=== PATIENT | female | born 1995 | race Caucasian/White ===

== ENCOUNTER 2016-07-29 23:35 | Emergency (ER) | payer BC ==
[~2016-07-29] VITALS: Ht 162.6 cm; Wt 85.3 kg
[~2016-07-29 23:35] MED LIST: PHEN100T82 PO; SULF1TAB24 PO
[2016-07-29 23:40] VITALS: BP 130/78
[2016-07-30] MEDS ORDERED: IBUP600T16 PO (00:13)
--- NOTE | 2016-07-30 00:16 | PHYS DOC ---
Past History Past Medical History: No Pertinent History Past Surgical History: No Surgical History Smoking: Cigarettes Alcohol Use: None Drug Use: None Adult General Chief Complaint Chief Complaint: PELVIC PAIN [facility] HPI Patient is a 20 year old female who presents with complaint of pelvic pain. Patient states that she had an episode pain prior to arrival but currently is asymptomatic. On further questioning, patient states that she has been having intermittent episodes over the past month. Patient states that the pain has worsened with sexual intercourse. Patient denies any vaginal bleeding or abnormal vaginal discharge. Patient has not taken any medications to help with her symptoms. Patient does not currently follow with [facility] and has not had a well woman visit in the last 2 years. Patient states that the pain has been in her lower abdomen and pelvis. Patient denies radiation of pain. Review of Systems Review of Systems Constitutional: Denies fever or chills [] Eyes: Denies change in visual acuity, redness, or eye pain [] HENT: Denies nasal congestion or sore throat [] Respiratory: Denies cough or shortness of breath [] Cardiovascular: No additional information not addressed in HPI [] GI: Denies abdominal pain, nausea, vomiting, bloody stools or diarrhea [] : Pelvic pain, denies vaginal bleeding, abnormal vaginal discharge, dysuria, or hematuria [] Musculoskeletal: Denies back pain or joint pain [] Integument: Denies rash or skin lesions [] Neurologic: Denies headache, focal weakness or sensory changes [] Allergies Allergies Allergies Coded Allergies Type Severity Reaction Last Updated Verified No Known Drug Allergies 12/30/15 No Physical Exam Physical Exam Constitutional: Well developed, well nourished, no acute distress, non-toxic appearance. [] HENT: Normocephalic, atraumatic, bilateral external ears normal, oropharynx moist, no oral exudates, nose normal. [] Eyes: PERRLA, EOMI, conjunctiva normal, no discharge. [] Neck: Normal range of motion, no tenderness, supple, no stridor. [] Cardiovascular:Heart rate regular rhythm, no murmur [] Lungs & Thorax: Bilateral breath sounds clear to auscultation [] Abdomen: Bowel sounds normal, soft, no tenderness, no masses, no pulsatile masses. Pelvic: Offered but declined by patient [] Skin: Warm, dry, no erythema, no rash. [] Back: No tenderness, no CVA tenderness. [] Extremities: No tenderness, no cyanosis, no clubbing, ROM intact, no edema. [] Neurologic: Alert and oriented X 3, normal motor function, normal sensory function, no focal deficits noted. [] Current Patient Data Vital Signs Vital Signs Date Time Temp Pulse Resp B/P (MAP) Pulse Ox O2 Delivery O2 Flow Rate FiO2 07/29/16 23:40 97.6 92 18 98 Room Air Lab Results Laboratory Tests Test 07/30/16 00:02 Bedside Urine HCG, Qualitative hcg negative EKG EKG Not performed [] Radiology/Procedures Radiology/Procedures Not performed [] Course & Med Decision Making Course & Med Decision Making Pertinent Labs and Imaging studies reviewed. (See chart for details) The patient appears well on exam. Source of patient's pain does not appear to be acute or life-threatening. I did offer the patient a pelvic exam in the emergency department which she declined but did agree to have this done as an outpatient with an [facility]. I refer the patient to Dr. Paloom of [facility] for further evaluation of her dyspareunia and pelvic pain. Advised return emergency department for any worsening symptoms. Patient voiced understanding and in agreement with treatment plan. Dragon Disclaimer Dragon Disclaimer This chart was dictated in whole or in part using Voice Recognition software in a busy, high-work load, and often noisy Emergency Department environment. It may contain unintended and wholly unrecognized errors or omissions. Departure Departure: Impression: Primary Impression: Pelvic pain Additional Impression: Dyspareunia Disposition: 01 HOME, SELF-CARE Condition: GOOD Referrals: PCP,NO (PCP) Patient Instructions: Pelvic Pain, Female Additional Instructions: Follow-up with Dr. Palomo of [facility] at to schedule an appointment in one week for evaluation. You will need a pelvic exam which was offered at today's visit to help diagnose the cause of your pain. His office is located at [address] [place] [address]. Return to the emergency department for any worsening symptoms. Scripts Ibuprofen (IBUPROFEN) 600 Mg Tablet 600 MG PO Q6HRS Y for PAIN, #30 TAB Prov: CALISTA HUFFMAN MD 07/30/16 Problem Qualifiers CALISTA HUFFMAN MD Jul 30, 2016 00:16
[2016-07-30 00:38] LABS: BILIRUBIN,URINE NEG (NEG); CLARITY,URINE CLEAR; COLOR,URINE YELLOW; GLUCOSE,URINE NEG (NEG); NITRITE,URINE NEG (NEG); UROBILINOGEN,URINE 0.2 mg/dL (0.2 mg/dL)
== END 2016-07-30 00:30 | disposition home or self-care (01) ==
LOC: ER 23:35
DX: R10.2 Pelvic and perineal pain (principal); N94.10 Unspecified dyspareunia; F17.210 Nicotine dependence, cigarettes, uncomplicated
CPT/HCPCS: 81003; 81025; 99283

== ENCOUNTER 2017-03-04 13:06 | Emergency (ER) | payer BC ==
[~2017-03-04 13:06] MED LIST changes: +IBUP600T16 PO
[2017-03-04] MEDS ORDERED: IV NORMAL SALINE 1,000ML 1,000 ML IV SCH (14:28)
[2017-03-04] MEDS ORDERED: FAMOTIDINE 20 MG/2 ML VIAL IVP ONE (15:00)
[2017-03-04] MEDS ORDERED: ONDANSETRON PF 4 MG/2 ML VIAL. IV ONE (15:00)
[2017-03-04 15:01] LABS: HEMOGLOBIN ISTAT 11.2 gm/dL; POTASSIUM ISTAT 3.7 mmol/L (3.5-5.0)
[2017-03-04] MEDS ORDERED: CEFD300C PO (15:32)
[2017-03-04] MEDS ORDERED: ONDA4TAB10 PO (15:32)
[2017-03-04 15:34] VITALS: BP 113/44
--- NOTE | 2017-03-04 15:35 | PHYS DOC ---
General Chief Complaint: ABDOMINAL PAIN IN Stated Complaint: 19WK GEST,CRAMPING/NAUSEA Time Seen by MD: 14:23 Source: patient Exam Limitations: no limitations Problems: History of Present Illness Initial Comments Patient is a 19 week gestation [id number] female coming to the emergency department complaining of nausea, lower abdominal cramping and frequency hesitancy and dysuria. Patient states that cramping began last evening, urinary symptoms began earlier today. She had emesis 1 but is uncertain whether that's related to hyperemesis gravidarum. She denies fever chills sweats or myalgias she's had no flank pain no vaginal discharge or bleeding no unilateral adnexal pain. She is established with an OB and has had a confirmed intrauterine . She says her mouth is feeling dry denies chest pain shortness of breath or contractions. Timing/Duration: other Severity: mild Modifying Factors: improves with other Associated Symptoms: nausea/vomiting, other Allergies: Coded Allergies: No Known Drug Allergies (Unverified , 12/30/15) Past Medical History Medical History: no pertinent history Surgical History: noncontributory LMP (Females 10-50): Social History Smoker: non-smoker Alcohol: none Drugs: none Review of Systems Constitutional: denies chills, denies diaphoresis, denies fever, denies malaise Respiratory: denies cough, denies shortness of breath Cardiovascular: denies chest pain, denies palpitations Gastrointestinal: see HPI Genitourinary: see HPI Musculoskeletal: denies back pain, denies joint swelling, denies neck pain Psychiatric/Neurological: denies headache, denies numbness, denies paresthesia Hematologic/Lymphatic: denies blood clots, denies easy bleeding, denies easy bruising Physical Exam General Appearance: WD/WN, no apparent distress Ear, Nose, Throat: hearing grossly normal, normal ENT inspection (dry mucous membranes), normal pharynx Neck: non-tender, supple Respiratory: normal breath sounds, no respiratory distress Cardiovascular: normal peripheral pulses, tachycardia Gastrointestinal: soft (suprapubic tenderness no rebound guarding or mass, gravid consistent with dates negative Azevedo negative McBurney bowel sounds normal) Back: no CVA tenderness, no vertebral tenderness Extremities: non-tender, normal inspection, no pedal edema 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 Heart rate normalized and patient's symptoms resolved with normal saline IV bolus. I discussed signs and symptoms to monitor as well as indications for urgent return to the department. I discussed close OB follow-up her questions were answered she expressed agreement and understanding of the treatment plan. Departure Time of Disposition: 15:32 Disposition: 01 HOME, SELF-CARE Diagnosis: UTI, Round ligament pain Condition: GOOD Patient Instructions: Abdominal Pain During , [id number], - Urinary Tract Infection, Round Ligament Pain Additional Instructions: Please review the patient education materials given by ED staff. Aggressive hydration to replace fluid losses and prevented dehydration. [id number] Tylenol as needed. Continue vitamins. Prescription: Cefdinir, Zofran ODT Contact your commercial cleaner by phone tomorrow to notify of today's ED visit and schedule recheck. Return to ED with new or changing symptoms. KENJI FENTON DO Mar 04, 2017 15:35
[2017-03-04 16:57] LABS: BILIRUBIN,URINE NEG (NEG); CLARITY,URINE CLOUDY; COLOR,URINE YELLOW; GLUCOSE,URINE NEG (NEG)
[2017-03-04 16:58] LABS: BACTERIA,URINE MANY /HPF (0-FEW); NITRITE,URINE NEG (NEG); SQUAMOUS EPITHELIAL CELL,UR OCC /LPF; UROBILINOGEN,URINE 1 mg/dL (0.2 mg/dL); WBC,URINE TNTC /HPF (0-4)
== END 2017-03-04 15:40 | disposition home or self-care (01) ==
LOC: ER 13:06
DX: O23.42 Unspecified infection of urinary tract in pregnancy, second trimester (principal); O26.892 Other specified pregnancy related conditions, second trimester; Z3A.19 19 weeks gestation of pregnancy
CPT/HCPCS: 36415; 80047; 81001; 85014; 85018; 87086; 96361; 96374; 96375; 99284; J2405; S0028; J7030

== ENCOUNTER → 2017-03-21 | Outpatient (CLI) | payer BC ==
[2017-03-04 15:34] VITALS: BP 113/44
[~2017-03-21] MED LIST changes: +CEFD300C PO; +ONDA4TAB10 PO
--- NOTE | 2017-03-21 13:17 | RAD ---
Obstetrical ultrasound, 03/21/2017: History: Check size and dates There is a single intrauterine fetus in a cephalic orientation. The biparietal diameter measures 5.6 cm compatible with a gestational age of 23 weeks. This corresponds well with the other measurements and yields a sonographic EDC of 07/18/2017. Normal activity and heart motion were seen. There is a four-chamber heart with a heart rate of 140 bpm. Fluid is identified in the bladder and stomach. The kidneys and spine are unremarkable. A 3 vessel umbilical cord is identified with a normal cord insertion. No specific abnormality is detected. The placenta lies anteriorly. There is no evidence of a placenta previa. A normal amount of fluid is present with the BYRON calculated at 16.1. The cervical length is 3.8 cm. IMPRESSION: Single viable intrauterine fetus of 23 weeks gestational age as described above.
== END | disposition home or self-care (01) ==
LOC: US 10:45
PROVIDERS: ATTEND Obstetrics & Gynecology
DX: Z34.92 Encounter for supervision of normal pregnancy, unspecified, second trimester (principal); Z3A.23 23 weeks gestation of pregnancy; F17.210 Nicotine dependence, cigarettes, uncomplicated
CPT/HCPCS: 76805

== ENCOUNTER → 2018-05-22 | Outpatient (CLI) | payer BC ==
--- NOTE | 2018-05-22 16:14 | RAD ---
Clinical indications: Evaluation for size and dates. COMPARISON: None available at this facility. Findings: A single intrauterine fetus is seen in variable position. heart rate is 132 beats per minute. BPD is 4.9 cm which equals 20 weeks 6 days. HC is 19.10 cm which equals 21 weeks 3 days. AC is 16.6 cm which equals 21 weeks 5 days. FL is 3.6 cm which equals 21 weeks 3 days. Average gestational age by ultrasound is 21 weeks 3 days +/- 12 days with an EDC of September 29, 2018. Estimated weight is 0 lbs and 15 oz. A four-chamber heart and three-vessel cord are identified. stomach and urinary bladder are identified. kidneys are unremarkable. Mild prominence of the renal collecting systems on both sides is seen which measures less than 5 mm which is within normal limits. Cord insertion site is unremarkable. The intracranial structures and spine are morphologically normal in appearance. The ventricular trigone measurement is less than 10 mm. Cisterna magna measurement is less than 10 mm. Four extremities are identified. BYRON using the four quadrant method is 14.5 cm. Cervical length is 4.1 cm. A grade 0 anterior placenta is seen. No placenta previa and no placenta abruptio is identified. The maternal ovaries are not visualized. Impression: Single IUP with gestational age of 21 weeks 3 days. Electronically signed by: Pravin Carver MD (05/22/2018 4:11 PM) [id number]
== END | disposition home or self-care (01) ==
LOC: US 08:32
PROVIDERS: ATTEND Obstetrics & Gynecology
DX: Z34.82 Encounter for supervision of other normal pregnancy, second trimester (principal); Z3A.21 21 weeks gestation of pregnancy
CPT/HCPCS: 76805